=== PATIENT | male | born 1930 | race Caucasian/White ===

== ENCOUNTER 2016-12-06 11:00 | Outpatient (RCR) | payer OTHER | END 2016-12-30 | disposition home or self-care (01) | LOC: PTY 11:00 | DX: R26.81 Unsteadiness on feet (principal); W19.XXXA Unspecified fall, initial encounter; Y92.9 Unspecified place or not applicable; Y99.8 Other external cause status ==

== ENCOUNTER 2017-01-12 10:00 | Outpatient (RCR) | payer OTHER | END 2017-01-29 | disposition home or self-care (01) | LOC: PTY 10:00 | DX: R26.81 Unsteadiness on feet (principal); W19.XXXD Unspecified fall, subsequent encounter ==

== ENCOUNTER 2017-02-07 11:00 | Outpatient (RCR) | payer OTHER | END 2017-03-01 | disposition home or self-care (01) | LOC: PTY 11:00 | DX: R26.81 Unsteadiness on feet (principal); Z91.81 History of falling ==

== ENCOUNTER 2017-06-20 15:11 | Outpatient (RCR) | payer OTHER | END 2017-07-01 | disposition home or self-care (01) | LOC: PTY 15:11 | DX: R26.81 Unsteadiness on feet (principal); Z91.81 History of falling ==

== ENCOUNTER 2017-07-18 13:45 | Outpatient (RCR) | payer OTHER | END 2017-08-01 | disposition home or self-care (01) | LOC: PTY 13:45 | DX: R26.81 Unsteadiness on feet (principal); Z91.81 History of falling ==

== ENCOUNTER 2017-08-02 10:57 | Outpatient (RCR) | payer OTHER | END 2017-08-31 | disposition home or self-care (01) | LOC: PTY 10:57 | DX: R26.81 Unsteadiness on feet (principal); Z91.81 History of falling ==